=== PATIENT | female | born 1960 | race Caucasian/White ===

== ENCOUNTER 2016-09-24 20:10 | Inpatient (IN) | payer BC ==
[~2016-09-24] VITALS: Ht 175.3 cm; Wt 77.3 kg
[2016-09-24] MEDS ORDERED: METR500T10 PO (20:25)
[2016-09-24] MEDS ORDERED: ZOFR4TAB3 PO (20:25)
[2016-09-24] MEDS ORDERED: MORPHINE 4 MG/ML 1ML SYRINGE IV ONE ×2 (21:00→23:45)
[2016-09-24] MEDS ORDERED: ONDANSETRON 4MG/2ML VIAL (J2405) IV ONE ×2 (21:00→23:45)
[2016-09-24] MEDS: NS 1,000 ML IV SCH ×2 (21:00→23:45)
[2016-09-24 21:14] LABS: BASO % 0.3 % (0.0-1.0); EOS # 0.2 K/mm3 (0.0-0.50); EOS % 1.9 % (0.0-3.0); LARGE UNSTAINED CELL # 0.1 K/mm3 (0.0-0.4); LARGE UNSTAINED CELL % 0.9 % (0.0-4.0); LYMPH # 1.9 K/mm3 (1.5-4.5); LYMPH % 14.6 % (24.0-44.0); MEAN CORPUSCULAR HEMOGLOBIN 29.7 pg (27.0-33.0); MEAN CORPUSCULAR HGB CONC 35.4 g/dl (32.0-36.5); MEAN CORPUSCULAR VOLUME 83.9 fl (80.0-96.0); MONO # 0.7 K/mm3 (0.0-0.8); MONO % 5.8 % (0.0-5.0); NEUTROPHILS # 9.2 K/mm3 (1.8-7.7); NEUTROPHILS % 76.5 % (36.0-66.0); PLATELET COUNT, AUTOMATED 275 k/mm3 (150-450); RED CELL DISTRIBUTION WIDTH 12.6 % (11.5-14.5)
[2016-09-24 21:40] LABS: ALBUMIN 3.9 GM/DL (3.2-5.2); ALBUMIN/GLOBULIN RATIO 1.18 (1.00-1.93); ALKALINE PHOSPHATASE 104 U/L (45-117); ALT/SGPT 79 U/L (12-78); ANION GAP 8 MEQ/L (8-16); AST/SGOT 45 U/L (15-37); BILIRUBIN,DIRECT < 0.1 MG/DL (0.0-0.2); BILIRUBIN,TOTAL 0.5 MG/DL (0.2-1.0); BLOOD UREA NITROGEN 14 MG/DL (7-18); CALCIUM LEVEL 8.6 MG/DL (8.5-10.1); CARBON DIOXIDE LEVEL 26 MEQ/L (21-32); CHLORIDE LEVEL 107 MEQ/L (98-107); CREATININE FOR GFR 0.92 MG/DL (0.55-1.02); GLOMERULAR FILTRATION RATE > 60.0 (>51); GLUCOSE, FASTING 96 MG/DL (70-105); POTASSIUM SERUM 3.3 MEQ/L (3.5-5.1); SODIUM LEVEL 141 MEQ/L (136-145); TOTAL PROTEIN 7.2 GM/DL (6.4-8.2)
[2016-09-24] MEDS ORDERED: POTASSIUM CHLORIDE 10 MEQ SR TABLET PO ONE (22:30)
[2016-09-24] MEDS ORDERED: GASTROGRAFIN SOLUTION 30ML (Q9963) As Ordered ONE (22:42)
[2016-09-25] VITALS (10 sets, daily range): BP systolic 92–113; BP diastolic 52–67
[2016-09-25] MEDS ORDERED: ISOVUE-370 76% 100ML VIAL (Q9967) As Ordered ONE (00:03)
[2016-09-25] MEDS ORDERED: MORPHINE 4 MG/ML 1ML SYRINGE As Ordered ONE ×2 (00:21→06:01)
--- NOTE | 2016-09-25 00:30 | REPUSA ---
CT of the abdomen and pelvis with contrast Clinical statement: Pain. Technique: Multiple axial CT images were obtained from the base of the lungs through the floor of the pelvis utilizing 5 mm axial slices after administration of nonionic intravenous contrast. Coronal an d sagittal reconstructions were also obtained. No comparison is available. Findings: Chest: The visualized lung bases are clear. Abdomen: The liver, spleen, pancreas, kidneys, gallbladder, and adrenal glands are unremarkable. The aorta is within normal limits. There is no evidence of abdominal lymphadenopathy or ascites. Pelvis: There is diffuse bowel wall thickening involving the descending and sigmoid colon, to the lev el of the rectum. No focal evidence of bowel obstruction is seen. The urinary bladder is within vinny l limits. The patient is status post hysterectomy. The other pelvic structures appear grossly intact. There is no evidence of pelvic lymphadenopathy or ascites. Bones: There are no suspicious osseous abnormalities seen. Impression: Diffuse bowel wall thickening involving the descending and sigmoid colon, to the level of the rectum. Findings suggest an infectious or inflammatory colitis. Clinical correlation is recomme nded.
[2016-09-25] MEDS ORDERED: KCL 10MEQ IN STERILE WATER 100ML As Ordered ONE (05:15)
[2016-09-25] MEDS ORDERED: metroNIDAZOLE 500 MG in APPROPRIATE DILUENT 1 EA IV SCH (05:15)
[2016-09-25] MEDS ORDERED: MORPHINE 4 MG/ML 1ML SYRINGE IV PRN (05:15)
[2016-09-25] MEDS: NS 1,000 ML IV SCH ×5 (05:19→20:12)
[2016-09-25] MEDS: KCL 10MEQ IN STERILE WATER 100ML IV SCH ×2 (05:19→08:15)
--- NOTE | 2016-09-25 05:56 | ECGEPIP ---
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
[2016-09-25] MEDS ORDERED: SODIUM CHLORIDE 0.9% 1000 ML IV ONE (06:15)
[2016-09-25] MEDS: ONDANSETRON 4MG/2ML VIAL (J2405) IV PRN ×2 (06:16→14:01)
[2016-09-25] MEDS: LEVOTHYROXINE 0.088 MG TAB (88 MCG) PO SCH (06:18)
[2016-09-25 06:56] LABS: MEAN CORPUSCULAR HEMOGLOBIN 30.3 pg (27.0-33.0); MEAN CORPUSCULAR HGB CONC 35.4 g/dl (32.0-36.5); MEAN CORPUSCULAR VOLUME 85.5 fl (80.0-96.0); RED CELL DISTRIBUTION WIDTH 12.7 % (11.5-14.5); WHITE BLOOD COUNT 12.1 K/mm3 (4.0-10.0)
[2016-09-25] MEDS ORDERED: POTASSIUM CHLORIDE 10 MEQ SR TABLET PO ONE (07:00)
[2016-09-25 07:15] LABS: ANION GAP 7 MEQ/L (8-16); BLOOD UREA NITROGEN 9 MG/DL (7-18); CALCIUM LEVEL 7.5 MG/DL (8.5-10.1); CARBON DIOXIDE LEVEL 25 MEQ/L (21-32); CHLORIDE LEVEL 110 MEQ/L (98-107); CREATININE FOR GFR 0.88 MG/DL (0.55-1.02); GLOMERULAR FILTRATION RATE > 60.0 (>51); GLUCOSE, FASTING 98 MG/DL (70-105); SODIUM LEVEL 142 MEQ/L (136-145)
[2016-09-25] MEDS: CitaloPRAM (CeleXA) 20 MG TAB PO SCH (08:14)
[2016-09-25] MEDS: metroNIDAZOLE 500 MG in APPROPRIATE DILUENT 1 EA IV SCH ×3 (08:16→20:11)
[2016-09-25] MEDS: KCL 10MEQ IN 100ML SWI (KRUN) 10 MEQ in APPROPRIATE DILUENT 1 EA IV SCH ×4 (08:16→09:57)
[2016-09-25 08:52] LABS: INR 1.15
[2016-09-25] MEDS: LACTOBACILLUS ACIDOPHILUS CAP (BACID) PO SCH ×2 (09:57→20:11)
[2016-09-25] MEDS: VANCOMYCIN ORAL SOL 250MG/5ML ORAL SYRINGE PO SCH ×4 (09:58→20:11)
[2016-09-25 11:43] LABS: ALBUMIN 3.3 GM/DL (3.2-5.2); ALBUMIN/GLOBULIN RATIO 1.03 (1.00-1.93); ALKALINE PHOSPHATASE 89 U/L (45-117); ALT/SGPT 64 U/L (12-78); AST/SGOT 34 U/L (15-37); BILIRUBIN,TOTAL 0.6 MG/DL (0.2-1.0); TOTAL PROTEIN 6.5 GM/DL (6.4-8.2)
[2016-09-25] MEDS: MORPHINE 4 MG/ML 1ML SYRINGE IV PRN ×2 (14:01→18:22)
[2016-09-25] MEDS: ACETAMINOPHEN TAB 650MG DOSE (2X325MG) PO PRN (23:56)
[2016-09-26] MEDS: metroNIDAZOLE 500 MG in APPROPRIATE DILUENT 1 EA IV SCH ×4 (03:05→20:55)
[2016-09-26 04:00] VITALS: BP 93/50
[2016-09-26] MEDS: LEVOTHYROXINE 0.088 MG TAB (88 MCG) PO SCH (05:49)
[2016-09-26] MEDS: ACETAMINOPHEN TAB 650MG DOSE (2X325MG) PO PRN ×2 (06:09→13:51)
[2016-09-26 06:17] LABS: MEAN CORPUSCULAR HEMOGLOBIN 29.2 pg (27.0-33.0); MEAN CORPUSCULAR VOLUME 85.8 fl (80.0-96.0); RED CELL DISTRIBUTION WIDTH 12.5 % (11.5-14.5); WHITE BLOOD COUNT 7.8 K/mm3 (4.0-10.0)
[2016-09-26 06:21] LABS: ANION GAP 8 MEQ/L (8-16); BLOOD UREA NITROGEN 6 MG/DL (7-18); CALCIUM LEVEL 7.4 MG/DL (8.5-10.1); CARBON DIOXIDE LEVEL 23 MEQ/L (21-32); CHLORIDE LEVEL 110 MEQ/L (98-107); CREATININE FOR GFR 0.75 MG/DL (0.55-1.02); GLOMERULAR FILTRATION RATE > 60.0 (>51); GLUCOSE, FASTING 84 MG/DL (70-105); POTASSIUM SERUM 3.8 MEQ/L (3.5-5.1); SODIUM LEVEL 141 MEQ/L (136-145)
[2016-09-26] MEDS: NS 1,000 ML IV SCH ×2 (06:46→17:19)
[2016-09-26 07:30] VITALS: BP 93/52
[2016-09-26] MEDS: CitaloPRAM (CeleXA) 20 MG TAB PO SCH (08:37)
[2016-09-26] MEDS: VANCOMYCIN ORAL SOL 250MG/5ML ORAL SYRINGE PO SCH ×4 (08:37→20:58)
[2016-09-26] MEDS: LACTOBACILLUS ACIDOPHILUS CAP (BACID) PO SCH ×2 (08:37→20:55)
[2016-09-26] MEDS: ONDANSETRON 4MG/2ML VIAL (J2405) IV PRN ×2 (10:42→17:19)
[2016-09-26 12:15] VITALS: BP 104/59
--- NOTE | 2016-09-26 12:25 | IPN ---
DATE: 09/26/2016 SUBJECTIVE: This is a 56-year-old female who is admitted for sepsis secondary to Clostridium (C) difficile colitis. Overnight, reported one loose bowel movement, however, small amount. Her abdominal discomfort, nausea and vomiting have been slowly improving. Denies any chest pain, shortness of breath, fevers, night sweats, or palpitations. Reports chills which is also better compared to yesterday. OBJECTIVE: VITAL SIGNS: Blood pressure 93/52, heart rate 58, temperature 99, respiratory rate 20, pulse oximetry 97% on room air. Intake and output last 24 hours, 500 and 1200. One bowel movement. GENERAL: Patient is laying in bed, comfortable, in no acute distress, less toxic-appearing today compared to yesterday. She is awake, alert and oriented times three, pleasant, cooperative, tired-appearing. HEENT: Normocephalic, atraumatic. Oral mucosa is dry. NECK: Supple. Trachea midline. No jugular venous distention (JVD). CHEST: Symmetric chest rise. No accessory muscle use. Breath sounds were clear to auscultation bilaterally. HEART: Regular rate and rhythm, S1, S2 present. ABDOMEN: Soft, mildly tender to palpitation but nondistended. Bowel sounds present. No guarding. No rebound. EXTREMITIES: No pedal edema. Pedal pulses present bilaterally. LABORATORY DATA: WBC 7.8, hemoglobin 10.8, hematocrit 31.8, platelets 203. Sodium 141, potassium3.8, chloride 110, carbon dioxide 23, BUN 6, creatinine 0.75, glucose 84, calcium 7.4. No new imaging. IMPRESSION AND PLAN: Ms. Bartlett is a 56-year-old female with history of hyperlipidemia, recently diagnosed with strep throat and was on antibiotics, who presented with diarrhea, nausea and vomiting, found to have Clostridium (C) difficile colitis. 1. Sepsis. Secondary to C. difficile colitis. Her symptoms are improving significantly. Continue vancomycin by mouth and Flagyl IV. 2. Hypotension. She maintains her mean arterial pressure (MAP) greater than 65. We will continue IV fluid hydration 100 mL per hour. 3. Hypothyroidism. Continue levothyroxine. 4. History of depression. Continue Celexa. 5. Anemia. Her hemoglobin and hematocrit have been unchanged since yesterday. We will continue to monitor for now. No need for emergent transfusion at this time. 6. Deep vein thrombosis (DVT) prophylaxis. Sequential compression device (SCD) and thromboembolic-deterrent stockings (TEDS). No pharmacological intervention secondary to reported bloody bowel movement on admission. My preceptor for this patient encounter was Dr. Sheryl Major. The preceptor was physically present in the building during the encounter and was fully available as needed. All aspects of the patient interview, examination, medical decision making process, and medical care plan development were reviewed and approved by the preceptor. The preceptor is aware and concurs with the plan as stated in the body of this note and will attest to such by his/her co-signature. TENISHA
[2016-09-26] MEDS ORDERED: SLF 3 ML SYR IV PRN (13:45)
[2016-09-26] MEDS: METOCLOPRAMIDE INJ 10MG/2ML VIAL (J2765) IV PRN (13:51)
[2016-09-26] MEDS: SLF 3 ML SYR IV SCH ×2 (13:51→22:00)
--- NOTE | 2016-09-26 14:09 | HPE ---
DATE OF ADMISSION: 09/25/2016 PRIMARY CARE PROVIDER: Dr. Garcia. ADMITTING PROVIDER: Dr. Rony Huerta. CHIEF COMPLAINT: Abdominal pain with bloody diarrhea. HISTORY OF PRESENT ILLNESS: Ms. Cifuentes is a 56-year-old female who presented to the emergency department for evaluation of what is now bloody diarrhea. She states that last , she began to have nausea, vomiting and diarrhea, therefore she presented to the Urgent Care in [facility]. She was presumed to have strep throat therefore she was given amoxicillin, however, even though she did take the amoxicillin as prescribed, she continue to get worse, therefore she did present to the [facility] on 09/24/2016, at that time it was presumed that perhaps she did have Clostridium difficile colitis, therefore GI panel was ordered and she was started on metronidazole, she did take one dose of oral metronidazole although she may have vomited this up, but then she began to have blood in her diarrhea as well, therefore she decided to present to the emergency department. She does state that she has been unable to eat for the past few days, she is also now beginning to have some difficulty with liquids as well as she will immediately vomit them backup after ingesting. She states that she has never had any previous episode such as this, and she is not prone to any sort of GI illnesses. She has not had any sick contacts per say, she does live with her elderly mother who had the flu a few weeks ago, but has since convalesced and never had GI symptoms such as this. ALLERGIES: TETRACYCLINE gives her rash, CODEINE SULFATE causes nausea and vomiting. DEMEROL causes nausea, vomiting and LIPITOR causes muscle weakness. HOME MEDICATIONS: - Levoxyl 88 mcg one tablet by mouth daily - Celexa 20 mg 1.5 tablets (for a total 30 mg) daily by mouth - ibuprofen 200 mg every 6 hours as needed - previously she had been taking amoxicillin 500 mg one tablet twice daily since last . - She was just prescribed metronidazole orally by the Urgent Care, she did take one pill, she is unsure of the dose, but thinks that she may have vomited this back up. PAST MEDICAL HISTORY: 1. Hypothyroidism, secondary to thyroid removal because of multiple thyroid nodules. She believes that she has approximately 5% of her thyroid remaining 2. Depression. 3. Hyperlipidemia. SOCIAL HISTORY: She is a never smoker. Does not imbibe alcohol. Has never used recreational drugs. 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 PAST SURGICAL HISTORY: She had an appendectomy secondary to an appendicolith and she also had a hysterectomy in the past. FAMILY HISTORY: She is adopted therefore she does not know her family history. She does have two children, both of whom are healthy. REVIEW OF SYSTEMS: Constitutional: She denies having any fevers, however she does admit to chills and shaking chills, she denies any night sweats, she does admit to weakness and fatigue as well as lethargy. She does not think she has had any significant weight loss. HEENT: She denies any changes in vision or hearing, she does not have any difficulty chewing or swallowing her food, however, because of her GI upset, she has been unable to tolerate anything by mouth for the past few days. Skin: She denies any new rashes, lumps, bumps or bruises. Respiratory: Denies cough, shortness of breath, wheezing or chest pain. Cardiovascular: Denies any chest discomfort, palpitations, orthopnea, paroxysmal nocturnal dyspnea or swelling in the feet or the ankles. Gastrointestinal: She has been suffering from nausea, vomiting and diarrhea since last , since this morning she has begun to have diarrhea with blood mixed in it, she does have abdominal pain which is described as diffuse aches and cramps. She also does feel somewhat bloated. Genitourinary: Denies any dysuria, frequency, incontinence or hematuria. Hematologic: Denies any easy bleeding or bruising and has not noticed any petechia purpura. Endocrine: Denies polydipsia, polyphagia or polyuria. Neurological: She denies any weakness or paresthesias, no changes in speech or facial droop. Psych: She does admit to chronic depression, otherwise no complaints at this time. PHYSICAL EXAMINATION: Vitals: Temperature is 98.2 degrees Fahrenheit. Pulses 58 and regular, respiratory rate 16, blood pressure 102/58 and pulse oximetry is 96% on room air. General: She is awake, alert and oriented times three. She is in moderate distress at this time. HEENT: Head is normocephalic, atraumatic. Pupils equally reactive to light. Sclera are nonicteric. Extraocular movements are intact. Hearing is grossly intact to conversation. Buccal mucosa is pink and moist. No lesions in the oropharynx. Dentition is good. No lymphadenopathy is appreciated. Pulmonary: Clear to auscultation bilaterally with no wheezes, rales or rhonchi. Cardiac: Regular rate and rhythm with no murmurs, rubs or gallops noted. Abdomen is diffusely tender, she is somewhat more tender in the right lower quadrant, hyperactive bowel sounds, multiple scars noted from her previous surgical history. Telemetry: No significant arrhythmia. She is in sinus rhythm at this time. She is even borderline bradycardic. Extremities: 2+ pulses in the radial bilaterally. No evidence of clubbing, cyanosis or edema. Skin: Normal turgor and temperature with no rash or breakdown. Neurological: Cranial nerves II-XII are grossly intact. Extraocular movements are intact. She is able to move all four extremities, muscle tone normal, she has normal speech with no difficulty word finding or word substitution. Psych exam: Mood and affect are appropriate. She is alert and oriented times three. LABORATORY DATA: WBC 12.0, hemoglobin 12.3, hematocrit 34.7, platelets 275. Sodium 141, potassium 3.3, chloride 107, carbon dioxide 26, BUN 14, creatinine 0.92, glucose 96, calcium 8.6, total bilirubin 0.5, direct bilirubin less than 0.1. AST 45, ALT 79, alkaline phosphatase 104, total creatinine kinase 154, CK- MB 1.2, CK-MB relative index 0.77. Troponin I less than 0.02, total protein 7.2, albumin 3.9, albumin/globulin ratio 1.18, lipase 177. Urinalysis: Color is yellow. Appearance is clear. PH is 9.0. Specific gravity 1.009. Protein, glucose, blood, nitrite, bilirubin and bacteria are all negative. She does have trace ketones and trace leukocyte esterase. Urine urobilinogen is 0.2, WBC 2, RBC 0. Hyaline casts 0. Squamous epithelial cells 0. ASSESSMENT/PLAN: 1. Clostridium difficile colitis as confirmed by GI panel ordered in [facility]. Will start her on vancomycin 250 mg by mouth four times daily, as well as metronidazole 500 mg IV every 6 hours as she may not be able to tolerate the oral vancomycin to begin with, however, we will attempt to give it to her. Given her soft pressures and her history of bloody diarrhea, we will also start her on normal saline at 200 cc/hour, at this point her hemoglobin and hematocrit has remained okay, and she is not tachycardiac, therefore, she does not appear to be in need of an immediate transfusion. We will provide her with Zofran 4 mg IV every 4 hours as needed for nausea and vomiting as well as morphine 3 mg IV every 3 hours as needed for pain. We will keep her n.p.o. at this time. We will check every 6 hours hemoglobin and hematocrit, as well as do daily CBC to ensure that leukocytosis is trending down, and we will continue to monitor daily BMPs for electrolyte abnormalities. 2. Hypokalemia. As the patient is unable to tolerate oral right now, we will give her two potassium runs and recheck her potassium in the morning, we will also get a magnesium level. 3. Hypothyroidism status post thyroidectomy. Continue with home dose of Levoxyl 88 mcg by mouth daily. 4. History of depression. Continue with Celexa 30 mg by mouth daily. 5. Deep venous thrombosis (DVT) prophylaxis. As the patient is currently bleeding, we will do DVT prophylaxis with thromboembolic deterrent stockings (TEDS) and sequentials, and we will allow her activity as tolerated and encourage ambulation if she is feeling up to it. I have both independently examined this patient as well as reviewed the dictated note. I have discussed in detail with the resident the findings and plan of treatment as documented in the residents note. I will continue to follow the patient and offer further guidance to the patients care as necessary during this hospital stay. TENISHA
--- NOTE | 2016-09-26 14:32 | IPN ---
DATE: 09/25/2016 SUBJECTIVE: This is a 56-year-old female who is seen and examined in the emergency room (ED). She was admitted overnight for hypotension and Clostridium (C) difficile colitis. Approximately 6-7 days ago, she developed intractable nausea, vomiting, and diarrhea. She was going approximately two episodes each hour, had kay-like content mixed in her stool along with mucous. Because of her symptoms, she presented to urgent care. At that time, she was diagnosed with strep throat and was sent home with amoxicillin. However, despite treatment, her symptoms worsened and she actually was reevaluated by her primary care provider (PCP) yesterday. At that time, stool was checked and was positive for C. difficile. She was then started on Flagyl by mouth and Bacid. Amoxicillin was discontinued. Since admission, she continues to report significant bowel movement mixed with her stool. Denies any recent travel, swimming in [place], or drinking [place] water. She does her own cooking but uses bottled water to cook. She has not eaten out in restaurants. She also reported abdominal pain which is diffusely located and described as sharp. Her abdomen is less painful today after morphine. This morning, she feels significantly improved in terms of her diarrhea as well as abdominal pain. No fevers, chills, night sweats, or nausea. She had emesis overnight which has since resolved. She was initially hypotensive with systolic as low as 80 and mean arterial pressure (MAP) lowest was 57. With multiple boluses and IV fluid hydration, this has improved. OBJECTIVE: VITAL SIGNS: Blood pressure 100/56, heart rate 63, temperature 98.9, respiratory rate 18, pulse oximetry 97% on room air. Intake and output since admission is not accurately documented. GENERAL: Patient is laying in bed at approximately 30 degree angle, comfortable, in no acute distress, awake, alert and oriented times three. HEENT: Normocephalic, atraumatic. Dry oral mucosa. Eyes: Extraocular movement intact. Pupils are equal and reactive to light. NECK: Supple. Trachea midline. No jugular venous distention (JVD). CHEST: Symmetric chest rise. No accessory muscle use. Breath sounds were diminished but clear bilaterally. HEART: Regular rate and rhythm, normal S1, S2. Did not appreciate murmurs, rubs, or gallops. ABDOMEN: Soft, diffusely tender to palpation but not distended. No guarding. No rebound. No peritoneal signs. EXTREMITIES: No pedal edema. Pedal pulses present bilaterally. NEUROLOGIC: No focal deficits appreciated. Cranial nerves II-XII grossly intact. Sensory intact. PSYCHIATRIC: Normal affect. LABORATORY DATA: WBC 12.1, no significant change compared to yesterday, hemoglobin 11.2, hematocrit 31.7, platelets 227. Sodium 142, potassium 4, chloride 110, carbon dioxide 25, BUN 9, creatinine 0.88 , glucose 98, calcium 7.5, magnesium 2, total bilirubin normal, liver profile normal. Lipase on admission was 177. Coagulation factors: PT 1.8, INR 1.15. Urinalysis showed trace ketones, trace leukocyte esterase. CT abdomen and pelvis performed on 09/24/2016 showed no suspicious osseous abnormality seen, diffuse bowel wall thickening involving the descending and sigmoid colon to the level of the rectum. Findings suggestive for infectious or inflammatory colitis. IMPRESSION AND PLAN: Ms. Bartlett is a 56-year-old female with a past medical history of hypertension, hyperlipidemia, recently diagnosed and treated for a strep throat, who presented for intractable nausea, vomiting and diarrhea, found to have Clostridium (C) difficile colitis. 1. Sepsis. Secondary to underlying C. difficile colitis. The patient will be continued with aggressive fluid hydration. She has been responding well and blood pressure is improving as expected. At this time, we will hold off on placement of central line due to her improved condition. Lactic acid was checked and was normal. Continue vancomycin 250 mg by mouth four times a day and Flagyl and 500 every six hours IV. We have started her on Bacid twice a day. Continue with normal saline at 100 mL per hour. Continue nothing by mouth status for now. This is her first episode of C. difficile colitis. 2. Hypotension. Likely secondary to infection as mentioned above. We will continue with aggressive fluid hydration. 3. Anemia. Patient has been reporting approximately close to one week of kay-colored stool. Continue to trend hemoglobin and hematocrit. No emergent criteria for transfusion at this time. Have stool checked for stool occult. Her most recent colonoscopy was last year in 2016 in [place]. At that time, she was told that her colonoscopy was negative. Coagulation studies were checked and were normal. 4. Leukocytosis. Likely secondary to underlying infection. We will repeat laboratories in the morning. She is on antibiotics for C. difficile colitis. 5. Hypokalemia. Potassium has been repleted. Magnesium level was appropriate. 6. History of hyperlipidemia. She does not appear to be on medication at this time. We will defer to primary care provider (PCP) whenever her condition is improved for discharge. 7. History of postsurgical hypothyroidism. Her medication outside indicates that she was taking levothyroxine 88 mcg daily. However, we currently do not have this listed as her reconciliation. We will check with pharmacy. 8. History of depression and anxiety. It appears that she was taking Celexa 10 mg by mouth daily which is not listed currently. 9. Deep vein thrombosis (DVT) prophylaxis. Sequential compression device (SCD) and thromboembolic-deterrent stockings (TEDS). No pharmacological intervention secondary to blood loss anemia. My preceptor for this patient encounter was Dr. Sheryl Major. The preceptor was physically present in the building during the encounter and was fully available as needed. All aspects of the patient interview, examination, medical decision making process, and medical care plan development were reviewed and approved by the preceptor. The preceptor is aware and concurs with the plan as stated in the body of this note and will attest to such by his/her co-signature. TENISHA
[2016-09-26 16:00] VITALS: BP 104/51
[2016-09-26 19:58] VITALS: BP 121/57
[2016-09-26 23:59] VITALS: BP 100/60
[2016-09-27] MEDS: ACETAMINOPHEN TAB 650MG DOSE (2X325MG) PO PRN (00:23)
[2016-09-27] MEDS: metroNIDAZOLE 500 MG in APPROPRIATE DILUENT 1 EA IV SCH ×4 (02:42→20:08)
[2016-09-27] MEDS: NS 1,000 ML IV SCH ×3 (02:46→20:07)
[2016-09-27 04:00] VITALS: BP 119/66
[2016-09-27] MEDS: LEVOTHYROXINE 0.088 MG TAB (88 MCG) PO SCH (05:41)
[2016-09-27] MEDS: SLF 3 ML SYR IV SCH ×3 (05:45→20:11)
[2016-09-27 06:16] LABS: MEAN CORPUSCULAR HGB CONC 34.9 g/dl (32.0-36.5); MEAN CORPUSCULAR VOLUME 86.1 fl (80.0-96.0); RED CELL DISTRIBUTION WIDTH 12.6 % (11.5-14.5); WHITE BLOOD COUNT 10.4 K/mm3 (4.0-10.0)
[2016-09-27 06:29] LABS: ANION GAP 13 MEQ/L (8-16); BLOOD UREA NITROGEN 7 MG/DL (7-18); CALCIUM LEVEL 7.7 MG/DL (8.5-10.1); CARBON DIOXIDE LEVEL 17 MEQ/L (21-32); CHLORIDE LEVEL 108 MEQ/L (98-107); CREATININE FOR GFR 0.74 MG/DL (0.55-1.02); GLOMERULAR FILTRATION RATE > 60.0 (>51); GLUCOSE, FASTING 69 MG/DL (70-105); POTASSIUM SERUM 3.7 MEQ/L (3.5-5.1); SODIUM LEVEL 138 MEQ/L (136-145)
[2016-09-27 07:15] VITALS: BP 95/52
[2016-09-27] MEDS: CitaloPRAM (CeleXA) 20 MG TAB PO SCH (08:40)
[2016-09-27] MEDS: LACTOBACILLUS ACIDOPHILUS CAP (BACID) PO SCH ×2 (08:40→20:10)
[2016-09-27] MEDS: VANCOMYCIN ORAL SOL 250MG/5ML ORAL SYRINGE PO SCH ×4 (08:40→20:09)
[2016-09-27] MEDS ORDERED: INFLUENZA QUADRIVALENT PF VACCINE 0.5ML SYRINGE/VIAL (90686) IM ONE (09:00)
[2016-09-27] MEDS ORDERED: ONDANSETRON 4MG/2ML VIAL (J2405) IV ONE (10:45)
[2016-09-27 12:00] VITALS: BP 100/55
--- NOTE | 2016-09-27 13:43 | IPN ---
DATE: 09/27/2016 This is a 56-year-old female who was seen and examined at bedside. Overnight no reported acute events. Early this morning, her diet was advanced to clear liquid. However, after starting to drink lamberto argelia and water, she reported immediate nausea and abdominal pain. She was also hypotensive again this morning with systolic in the 90s though her map was able to maintain above 65. She was found to be bradycardic on telemetry. Denies chest pain, shortness of breath, fevers, chills. She felt better compared to yesterday until she started taking oral. OBJECTIVE: Vital signs: Blood pressure 95/52, heart rate 68, temperature 97.1, respiration rate 18, pulse ox 96% on room air. Intake and output for the last 24 hours 1850 and 3250. Output is negative 1400. Weight is 75.6 kg. General: Patient is lying in bed, comfortable, tired appearing. However, no acute respiratory or psychiatric distress. HEENT: Normocephalic, atraumatic. Dry oral mucosa. Neck: Supple. Trachea midline. No jugular venous distention (JVD). Chest: Symmetric chest rise. No accessory muscle use. Breath sounds are clear to auscultation bilaterally without rales, wheezing or rhonchi. Heart: Regular rate and rhythm with normal S1, S2. Did not appreciate murmurs, rubs or gallops. Abdomen: Soft, diffusely tender to palpation, nondistended, no guarding, no rebound, no peritoneal signs. Extremities: No pedal edema, pedal pulses are present bilaterally. Neurologic: No focal deficits appreciated. Cranial nerves II through XII grossly intact. Psychiatric: Appears tired but normal affect. LABORATORY DATA: WBC 10.4 increased from yesterday 7.8, hemoglobin 11.6, hematocrit 33.3, platelets 232. Sodium 138, potassium 3.7, chloride 108, carbon dioxide 17. BUN 7, creatinine 0.74. Glucose 69, calcium 7.7. IMPRESSION AND PLAN: Ms. Cifuentes is a 56-year-old female with history of hyperlipidemia, hypothyroidism who is currently admitted for sepsis secondary to Clostridium difficile colitis. 1. Sepsis. Continue fluid hydration at 125 mL/hr. She still remains somewhat hypotensive this morning and has not been able to tolerate oral intake. Telemetry also showed bradycardia although she was asymptomatic. For now, the patient will continue to be monitored in the progressive care unit (PCU). Continue supportive management with Zofran. She is currently on vancomycin by mouth and Flagyl IV. Continue Bacid. She is on day 3 of antibiotics. Once her blood pressure improves, hopefully we can stop her IV Flagyl. 2. Hypotension. Secondary to underlying infection. Will continue aggressive fluid resuscitation at this time. The patient will be continued to be monitored closely in the progressive care unit. 3. Anemia. Her hemoglobin is slowly improving. No longer reported kay colored stool. Her last bowel movement was on the day of admission. Continue to monitor for now. No need for emergent transfusion at this time. Her most recent colonoscopy was 2015 in [facility], at that time was reportedly negative. 4. Leukocytosis. WBC today shows mild increase but still within normal range. She remains afebrile throughout this admission. Continue antibiotics as mentioned above. 5. Hypokalemia. Potassium is within reasonable range. 6. History of postsurgical hypothyroidism. Continue levothyroxine 88 mcg by mouth daily. 7. History of anxiety/depression. Continue Celexa. 8. Deep venous thrombosis (DVT) prophylaxis, sequential compression devices (SCD), thromboembolic deterrent stockings (TEDS). Will start her on heparin for pharmacological intervention as we do not have records documenting blood loss. Will continue to monitor her levels closely. DISPOSITION: Because of patient's bradycardia and hypotension, she will remain in the progressive care unit for now. My preceptor for this patient encounter was Dr. Major. The preceptor was physically present in the building during the encounter and was fully available. As needed, all aspects of the patient interview, examination, medical decision making process, and medical care plan development were reviewed and approved by the preceptor. The preceptor is aware and concurs with the plan as stated in the body of this note and will attest to such by his/her cosignature. TENISHA
[2016-09-27] MEDS: HEPARIN SOD (PORCINE) 5000 UNITS/ML VIAL SQ SCH ×2 (14:32→20:10)
[2016-09-27 16:00] VITALS: BP 105/62
[2016-09-27 20:00] VITALS: BP 99/55
[2016-09-27] MEDS ORDERED: MAALOX 30 ML SUSP *UDC PO PRN (23:15)
[2016-09-27] MEDS: METOCLOPRAMIDE INJ 10MG/2ML VIAL (J2765) IV PRN (23:24)
[2016-09-27 23:59] VITALS: BP_SYST 100; BP_SYST 110; BP_DIAS 55; BP_DIAS 58
[2016-09-28] MEDS: metroNIDAZOLE 500 MG in APPROPRIATE DILUENT 1 EA IV SCH ×3 (02:26→13:01)
[2016-09-28] MEDS: NS 1,000 ML IV SCH ×3 (02:26→17:09)
[2016-09-28 04:45] VITALS: BP 90/52
[2016-09-28] MEDS: LEVOTHYROXINE 0.088 MG TAB (88 MCG) PO SCH (05:00)
[2016-09-28] MEDS: SLF 3 ML SYR IV SCH ×3 (05:00→21:21)
[2016-09-28 05:42] LABS: MEAN CORPUSCULAR HEMOGLOBIN 28.4 pg (27.0-33.0); MEAN CORPUSCULAR HGB CONC 33.2 g/dl (32.0-36.5); MEAN CORPUSCULAR VOLUME 85.6 fl (80.0-96.0); RED CELL DISTRIBUTION WIDTH 12.9 % (11.5-14.5)
[2016-09-28 05:45] LABS: ANION GAP 12 MEQ/L (8-16); BLOOD UREA NITROGEN 7 MG/DL (7-18); CALCIUM LEVEL 7.2 MG/DL (8.5-10.1); CARBON DIOXIDE LEVEL 19 MEQ/L (21-32); CHLORIDE LEVEL 109 MEQ/L (98-107); GLOMERULAR FILTRATION RATE > 60.0 (>51); GLUCOSE, FASTING 74 MG/DL (70-105); POTASSIUM SERUM 3.7 MEQ/L (3.5-5.1); SODIUM LEVEL 140 MEQ/L (136-145)
[2016-09-28 08:00] VITALS: BP 102/60
[2016-09-28] MEDS: CitaloPRAM (CeleXA) 20 MG TAB PO SCH (08:23)
[2016-09-28] MEDS: LACTOBACILLUS ACIDOPHILUS CAP (BACID) PO SCH ×2 (08:23→21:20)
[2016-09-28] MEDS: VANCOMYCIN ORAL SOL 250MG/5ML ORAL SYRINGE PO SCH ×4 (08:23→21:20)
[2016-09-28] MEDS: HEPARIN SOD (PORCINE) 5000 UNITS/ML VIAL SQ SCH ×2 (08:23→21:21)
[2016-09-28 12:00] VITALS: BP 118/60
[2016-09-28] MEDS: ONDANSETRON 4MG/2ML VIAL (J2405) IV PRN (13:53)
[2016-09-28 15:50] VITALS: BP 112/68
[2016-09-28] MEDS: METOCLOPRAMIDE INJ 10MG/2ML VIAL (J2765) IV PRN ×2 (17:09→21:28)
--- NOTE | 2016-09-28 20:38 | IPN ---
DATE: 09/28/2016 SUBJECTIVE: This is a 56-year-old female who was seen and examined at bedside. Overnight no reported acute events. She was advanced to clear liquid diet yesterday. Her oral intake is somewhat improved this morning with her clear liquids compared to yesterday. No nausea, vomiting. Has not had further bowel movements since admission. She did have one episode of flatus. Abdominal pain is significantly improved. OBJECTIVE: Vital signs: Blood pressure 102/60, heart rate 69, temperature 97.3 , respiration rate 18, pulse oximetry 96% on room air. Intake and output for the last 24 hours 3145 and 3175. No bowel movements since 09/25/2016. Weight is 75.9 kg. GENERAL: Patient is lying in bed at approximately 45 degree angle, comfortable. No acute distress. Alert, awake, oriented times three. Pleasant, cooperative, tired-appearing. HEENT: Normocephalic, atraumatic. Dry oral mucosa. NECK: Supple. Trachea midline. No jugular venous distention (JVD). CHEST: Symmetric chest rise. No accessory muscle use. Breath sounds are clear to auscultation bilaterally without rales, wheezing or rhonchi. HEART: Regular rate and rhythm with normal S1, S2. Did not appreciate murmurs, rubs or gallops. ABDOMEN: Soft, mildly tender to palpation but less significant today compared to yesterday. No distention. No guarding. No rebound. No peritoneal signs. EXTREMITIES: No pedal edema, pedal pulses are present bilaterally. NEUROLOGIC: No focal deficits appreciated. Cranial nerves II through XII grossly intact. PSYCHIATRIC: Tired, cooperative. LABORATORY DATA: WBC 8, hemoglobin 10.9, hematocrit 32.7, platelets 227. Sodium 140, potassium 3.7, chloride 109, carbon dioxide 19, BUN 7, creatinine 0.7, glucose 74, calcium 7.2. IMPRESSION AND PLAN: Ms. Cifuentes is a 56-year-old female with history of hyperlipidemia, hypothyroidism, admitted for sepsis secondary to Clostridium (C) difficile colitis. 1. Sepsis, resolved. She is on vancomycin and IV Flagyl. We will continue IV hydration for now at 125 mL per hour. Once her oral intake increases, we hope to decrease her fluid rate. 2. Hypotension, secondary to underlying infection. The patient reports her baseline blood pressure is anywhere in the 120 range. In review of her previous vital signs, she tends to run low early in the morning and the patient reportedly was sleeping before her blood pressure was checked. She remains asymptomatic despite her hypotension. For now, we will continue to monitor. She is on IV fluid at 125 mL per hour. She is also on antibiotics for C difficile colitis. 3. Anemia. No evidence of gross bleeding at this time. In fact, she has not had a bowel movement since admission. Continue to monitor. No need for emergent transfusion. We have again requested for colonoscopy report from [place] that was performed in 2016, which reportedly was negative. 4. Leukocytosis, resolved. This is secondary to her C difficile colitis. Continue antibiotic. She is on day 4 of antibiotics. 5. Hypokalemia, resolved. 6. History of postsurgical hypothyroidism. Continue levothyroxine 88 mcg by mouth daily, which is her home medication. 7. Anxiety/depression. Continue home dose of Celexa. 8. Deep venous thrombosis (DVT) prophylaxis, sequential compression devices (SCD), thromboembolic deterrent stockings (TEDS), and heparin. DISPOSITION: Due to the patient's improved condition with no event on telemetry, the patient will be transferred to medical/surgical today. My preceptor for this patient encounter was Dr. Major. The preceptor was physically present in the building during the encounter and was fully available. As needed, all aspects of the patient interview, examination, medical decision making process, and medical care plan development were reviewed and approved by the preceptor. The preceptor is aware and concurs with the plan as stated in the body of this note and will attest to such by his/her cosignature. TENISHA
[2016-09-28 22:00] VITALS: BP 110/64
[2016-09-29] MEDS: NS 1,000 ML IV SCH ×2 (00:03→07:27)
[2016-09-29] MEDS: LEVOTHYROXINE 0.088 MG TAB (88 MCG) PO SCH (05:43)
[2016-09-29] MEDS: SLF 3 ML SYR IV SCH ×3 (05:57→20:51)
[2016-09-29 06:00] VITALS: BP 110/61
[2016-09-29 06:01] LABS: MEAN CORPUSCULAR HEMOGLOBIN 29.3 pg (27.0-33.0); MEAN CORPUSCULAR HGB CONC 33.9 g/dl (32.0-36.5); MEAN CORPUSCULAR VOLUME 86.4 fl (80.0-96.0); RED CELL DISTRIBUTION WIDTH 13.1 % (11.5-14.5); WHITE BLOOD COUNT 7.4 K/mm3 (4.0-10.0)
[2016-09-29 06:21] LABS: ANION GAP 13 MEQ/L (8-16); BLOOD UREA NITROGEN 5 MG/DL (7-18); CALCIUM LEVEL 7.4 MG/DL (8.5-10.1); CARBON DIOXIDE LEVEL 18 MEQ/L (21-32); CHLORIDE LEVEL 108 MEQ/L (98-107); GLOMERULAR FILTRATION RATE > 60.0 (>51); GLUCOSE, FASTING 70 MG/DL (70-105); POTASSIUM SERUM 3.8 MEQ/L (3.5-5.1); SODIUM LEVEL 139 MEQ/L (136-145)
[2016-09-29] MEDS: CitaloPRAM (CeleXA) 20 MG TAB PO SCH (08:49)
[2016-09-29] MEDS: LACTOBACILLUS ACIDOPHILUS CAP (BACID) PO SCH ×2 (08:49→20:51)
[2016-09-29] MEDS: VANCOMYCIN ORAL SOL 250MG/5ML ORAL SYRINGE PO SCH ×4 (08:49→20:52)
[2016-09-29] MEDS: HEPARIN SOD (PORCINE) 5000 UNITS/ML VIAL SQ SCH ×2 (08:49→20:51)
--- NOTE | 2016-09-29 10:55 | IPNPDOC ---
Subjective Date Seen The patient was seen on 09/29/16. Subjective Chief Complaint/HPI The patient is a 56-year-old female admitted with a reason for visit of Colitis , Lower Gi Bleed. General: Denies: Chills, Night Sweats Constitutional: Denies: Chills, Fever Eyes: Denies: Pain, Vision change ENT: Denies: Head Aches, Ear Pain Skin: Denies: Rash, Lesions Pulmonary: Denies: Dyspnea, Cough Cardiovascular: Denies: Chest Pain, Palpitations Gastrointestinal: Denies: Nausea, Vomiting, Abdominal Pain Genitourinary: Denies: Dysuria, Frequency Hematologic: Denies: Bruising, Bleeding Excessively Objective Physical Examination General Exam: Positive: Alert, Cooperative, No Acute Distress ENT Exam: Positive: Atraumatic, Mucous membr. moist/pink Neck Exam: Negative: JVD Chest Exam: Positive: Clear to auscultation, Normal air movement Heart Exam: Positive: Rate Normal, Normal S1, Normal S2 Abdomen Exam: Positive: Soft, Negative: Tenderness Extremity Exam: Negative: Tenderness, Swelling Psych Exam: Positive: Oriented x 3 Assessment /Plan Plan/VTE VTE Prophylaxis Ordered?: Yes Plan Abdominal pain, diarrhea 2/2 Clostridium difficile infection White blood cell count within normal limits, and afebrile at this time Continue on by mouth vancomycin Patient states that her diarrhea has resolved and notes feeling much better today Patient tolerated clear liquid diet adequately yesterday, we will advance her diet today We will continue to monitor her status Leukocytosis, secondary to C. difficile colitis, resolved. Continue by mouth Vanco History of postsurgical hypothyroidism. Continue levothyroxine 88 mcg Anxiety/depression Continue Celexa. Deep venous thrombosis (DVT) prophylaxis (TEDS) and heparin. DISPOSITION: Anticipate discharge in 24-48 hours pending clinical improvement/ by mouth tolerance VS, I&O, 24H, Fishbone Vital Signs/I&O Vital Signs Date Time Temp Pulse Resp B/P (MAP) Pulse Ox O2 Delivery O2 Flow Rate FiO2 09/29/16 06:00 98.2 63 18 110/61 (77) 96 Room Air I&O- Last 24 Hours up to 6 AM 09/29/16 06:00 Intake Total 3235 ml Output Total 3425 ml Balance -190 ml Laboratory Data 24H LABS Laboratory Tests 2 09/29/16 05:29: Anion Gap 13, Glomerular Filtration Rate > 60.0, Blood Urea Nitrogen 5L, Creatinine 0.60, Sodium Level 139, Potassium Level 3.8, Chloride Level 108H, Carbon Dioxide Level 18L, Calcium Level 7.4L CBC/BMP Laboratory Tests 09/29/16 05:29 Red Blood Count 3.85 L, Mean Corpuscular Volume 86.4, Mean Corpuscular Hemoglobin 29.3, Mean Corpuscular Hemoglobin Concent 33.9, Red Cell Distribution Width 13.1, Calcium Level 7.4 L Microbiology Microbiology 09/24/16 Urine Culture - Final, Complete LANNY BRADY MD Sep 29, 2016 10:55
[2016-09-29 14:00] VITALS: BP 109/56
[2016-09-29 22:00] VITALS: BP 110/68
[2016-09-30] MEDS: LEVOTHYROXINE 0.088 MG TAB (88 MCG) PO SCH (05:50)
[2016-09-30] MEDS: SLF 3 ML SYR IV SCH ×3 (05:50→22:02)
[2016-09-30 06:00] VITALS: BP 90/64
[2016-09-30 07:56] LABS: MEAN CORPUSCULAR HGB CONC 34.7 g/dl (32.0-36.5); MEAN CORPUSCULAR VOLUME 83.6 fl (80.0-96.0); RED CELL DISTRIBUTION WIDTH 13.3 % (11.5-14.5)
[2016-09-30 08:19] LABS: ANION GAP 7 MEQ/L (8-16); BLOOD UREA NITROGEN 4 MG/DL (7-18); CALCIUM LEVEL 8.3 MG/DL (8.5-10.1); CARBON DIOXIDE LEVEL 27 MEQ/L (21-32); CHLORIDE LEVEL 107 MEQ/L (98-107); CREATININE FOR GFR 0.62 MG/DL (0.55-1.02); GLOMERULAR FILTRATION RATE > 60.0 (>51); GLUCOSE, FASTING 100 MG/DL (70-105); POTASSIUM SERUM 3.7 MEQ/L (3.5-5.1); SODIUM LEVEL 141 MEQ/L (136-145)
[2016-09-30] MEDS: LACTOBACILLUS ACIDOPHILUS CAP (BACID) PO SCH ×2 (09:28→20:38)
[2016-09-30] MEDS: VANCOMYCIN ORAL SOL 250MG/5ML ORAL SYRINGE PO SCH ×4 (09:28→20:37)
[2016-09-30] MEDS: CitaloPRAM (CeleXA) 20 MG TAB PO SCH (09:28)
[2016-09-30] MEDS: HEPARIN SOD (PORCINE) 5000 UNITS/ML VIAL SQ SCH ×2 (09:28→20:38)
[2016-09-30 09:34] VITALS: BP 102/64
[2016-09-30] MEDS: ACETAMINOPHEN TAB 650MG DOSE (2X325MG) PO PRN (09:58)
[2016-09-30] MEDS ORDERED: VANC125C2 PO (10:29)
--- NOTE | 2016-09-30 13:53 | IPNPDOC ---
Subjective Date Seen The patient was seen on 09/30/16. Subjective Chief Complaint/HPI The patient is a 56-year-old female admitted with a reason for visit of Colitis , Lower Gi Bleed. General: Denies: Chills, Night Sweats Constitutional: Denies: Chills, Fever Eyes: Denies: Pain, Vision change ENT: Denies: Head Aches, Ear Pain Skin: Denies: Rash, Lesions Pulmonary: Denies: Dyspnea, Cough Cardiovascular: Denies: Chest Pain, Palpitations Gastrointestinal: Denies: Nausea, Vomiting Genitourinary: Denies: Dysuria, Frequency Hematologic: Denies: Bruising, Bleeding Excessively Musculoskeletal: Denies: Neck Pain, Back Pain Objective Physical Examination General Exam: Positive: Alert, Cooperative, No Acute Distress ENT Exam: Positive: Atraumatic, Mucous membr. moist/pink Neck Exam: Negative: JVD Chest Exam: Positive: Clear to auscultation, Normal air movement Heart Exam: Positive: Rate Normal, Normal S1, Normal S2 Abdomen Exam: Positive: Soft, Negative: Tenderness Extremity Exam: Negative: Tenderness, Swelling Psych Exam: Positive: Oriented x 3 Assessment /Plan Plan/VTE VTE Prophylaxis Ordered?: Yes Plan Abdominal pain, diarrhea 2/2 Clostridium difficile infection White blood cell count within normal limits, and afebrile at this time Continue on by mouth vancomycin Patient states that her diarrhea has resolved and notes feeling much better Patient tolerating PO diet better over night, but has yet to have a full meal--- will trial this today We will continue to monitor her status Leukocytosis, secondary to C. difficile colitis, resolved. Continue by mouth Vanco History of postsurgical hypothyroidism. Continue levothyroxine 88 mcg Anxiety/depression Continue Celexa. Deep venous thrombosis (DVT) prophylaxis (TEDS) and heparin. DISPOSITION: Anticipate discharge in 24-48 hours pending clinical improvement/ by mouth tolerance VS, I&O, 24H, Iliabone Vital Signs/I&O Vital Signs Date Time Temp Pulse Resp B/P (MAP) Pulse Ox O2 Delivery O2 Flow Rate FiO2 09/30/16 09:34 102/64 (77) 09/30/16 06:00 97.2 57 18 95 Room Air I&O- Last 24 Hours up to 6 AM 09/30/16 06:00 Intake Total 840 ml Output Total 1500 ml Balance -660 ml Laboratory Data 24H LABS Laboratory Tests 2 09/30/16 07:28: Anion Gap 7L, Glomerular Filtration Rate > 60.0, Blood Urea Nitrogen 4L, Creatinine 0.62, Sodium Level 141, Potassium Level 3.7, Chloride Level 107, Carbon Dioxide Level 27, Calcium Level 8.3L CBC/BMP Laboratory Tests 09/30/16 07:28 Red Blood Count 4.18, Mean Corpuscular Volume 83.6, Mean Corpuscular Hemoglobin 29.0, Mean Corpuscular Hemoglobin Concent 34.7, Red Cell Distribution Width 13.3 , Calcium Level 8.3 L Microbiology Microbiology 09/24/16 Urine Culture - Final, Complete LANNY BRADY MD September 30, 2016 13:53
[2016-09-30 14:00] VITALS: BP_SYST 100; BP_SYST 164; BP_DIAS 54; BP_DIAS 79
[2016-09-30 22:00] VITALS: BP 128/54
[2016-10-01 01:15] VITALS: BP 106/66
[2016-10-01] MEDS: LEVOTHYROXINE 0.088 MG TAB (88 MCG) PO SCH (06:00)
[2016-10-01] MEDS: SLF 3 ML SYR IV SCH ×2 (06:00→08:17)
[2016-10-01 08:00] VITALS: BP 104/56
[2016-10-01 08:09] LABS: MEAN CORPUSCULAR HEMOGLOBIN 29.9 pg (27.0-33.0); MEAN CORPUSCULAR HGB CONC 34.9 g/dl (32.0-36.5); MEAN CORPUSCULAR VOLUME 85.8 fl (80.0-96.0); RED CELL DISTRIBUTION WIDTH 13.6 % (11.5-14.5); WHITE BLOOD COUNT 6.6 K/mm3 (4.0-10.0)
[2016-10-01] MEDS: VANCOMYCIN ORAL SOL 250MG/5ML ORAL SYRINGE PO SCH (08:16)
[2016-10-01] MEDS: CitaloPRAM (CeleXA) 20 MG TAB PO SCH (08:17)
[2016-10-01] MEDS: HEPARIN SOD (PORCINE) 5000 UNITS/ML VIAL SQ SCH (08:17)
[2016-10-01] MEDS: LACTOBACILLUS ACIDOPHILUS CAP (BACID) PO SCH (08:17)
[2016-10-01 08:30] LABS: ANION GAP 7 MEQ/L (8-16); BLOOD UREA NITROGEN 8 MG/DL (7-18); CARBON DIOXIDE LEVEL 29 MEQ/L (21-32); CHLORIDE LEVEL 105 MEQ/L (98-107); CREATININE FOR GFR 0.72 MG/DL (0.55-1.02); GLOMERULAR FILTRATION RATE > 60.0 (>51); GLUCOSE, FASTING 100 MG/DL (70-105); POTASSIUM SERUM 3.8 MEQ/L (3.5-5.1); SODIUM LEVEL 141 MEQ/L (136-145)
--- NOTE | 2016-10-01 15:27 | DS.PDOC ---
Discharge Summary General Date of Admission Sep 25, 2016 at 03:00 Date of Discharge 10/01/16 Discharge Summary PROCEDURES PERFORMED DURING STAY: None. ADMITTING DIAGNOSES: 1. . C. difficile colitis 2. . Dyslipidemia 3. . Depression DISCHARGE DIAGNOSES: 1. . C. difficile colitis 2. . Dyslipidemia 3. . Depression COMPLICATIONS/CHIEF COMPLAINT: Colitis, Lower Gi Bleed. HISTORY OF PRESENT ILLNESS: . 56-year-old female with past medical history of hypothyroidism status post thyroidectomy, depression, and dyslipidemia presented to the ER with a chief complaint of abdominal pain with diarrhea. The patient was apparently seen in the [facility] urgent care clinic and was presumptively treated for C. difficile with metronidazole recently. However she returned to the ER here at [facility] for persistent nausea, vomiting, and diarrhea. The patient denied any sick contacts , recent foreign food ingestions, or any fevers, chills, chest pain, weight loss. The patient was admitted to the hospitalist service for further evaluation and management. During hospitalization a CT scan of the abdomen was performed and revealed diffuse bowel wall thickening involving the descending and sigmoid colon to the level of the rectum suggestive of possible infectious or inflammatory colitis. A GI panel was ordered here and was noted to be positive for C. difficile. The patient was subsequently treated with by mouth vancomycin. Over the last 5 days the patient's abdominal pain and diarrhea has resolved. She has been able to tolerate a by mouth diet and hasn't had any more episodes of nausea or vomiting. In addition, the patient's white blood cell count has normalized and she has remained afebrile. At this time, the patient states that she is feeling well and is eager to return home. I have discussed the importance of completing her trial of by mouth vancomycin therapy. I have advised the patient to follow- up with her primary care physician within one week and return to the ER if symptoms return or worsen. DISCHARGE MEDICATIONS: Please see below. ALLERGIES: Please see below. PHYSICAL EXAMINATION ON DISCHARGE: VITAL SIGNS: Please see below. General Exam: Positive: Alert, Cooperative, No Acute Distress ENT Exam: Positive: Atraumatic, Mucous membr. moist/pink Neck Exam: Negative: JVD Chest Exam: Positive: Clear to auscultation, Normal air movement Heart Exam: Positive: Rate Normal, Normal S1, Normal S2 Abdomen Exam: Positive: Soft, Negative: Tenderness Extremity Exam: Negative: Tenderness, Swelling Psych Exam: Positive: Oriented x 3 LABORATORY DATA: Please see below. IMAGING: CT of the abdomen and pelvis with contrast Clinical statement: Pain. Technique: Multiple axial CT images were obtained from the base of the lungs through the floor of the pelvis utilizing 5 mm axial slices after administration of nonionic intravenous contrast. Coronal and sagittal reconstructions were also obtained. No comparison is available. Findings: Chest: The visualized lung bases are clear. Abdomen: The liver, spleen, pancreas, kidneys, gallbladder, and adrenal glands are unremarkable. The aorta is within normal limits. There is no evidence of abdominal lymphadenopathy or ascites. Pelvis: There is diffuse bowel wall thickening involving the descending and sigmoid colon, to the level of the rectum. No focal evidence of bowel obstruction is seen. The urinary bladder is within normal limits. The patient is status post hysterectomy. The other pelvic structures appear grossly intact. There is no evidence of pelvic lymphadenopathy or ascites. Bones: There are no suspicious osseous abnormalities seen. Impression: Diffuse bowel wall thickening involving the descending and sigmoid colon, to the level of the rectum. Findings suggest an infectious or inflammatory colitis. Clinical correlation is recommended. PROGNOSIS: ACTIVITY: As tolerated. DIET: . As tolerated DISCHARGE PLAN: Home DISPOSITION: Home, Self-Care. DISCHARGE INSTRUCTIONS: 1. . Follow-up with primary care physician within one to 2 weeks 2. . Return to the ER if symptoms persist or worsen DISCHARGE CONDITION: Stable. TIME SPENT ON DISCHARGE: Greater than 30 minutes. Vital Signs/I&Os Vital Signs Date Time Temp Pulse Resp B/P (MAP) Pulse Ox O2 Delivery O2 Flow Rate FiO2 10/01/16 08:00 97.4 66 16 104/56 (72) 95 Room Air I&O- Last 24 Hours up to 6 AM 10/01/16 06:00 Intake Total 780 ml Output Total 1450 ml Balance -670 ml Laboratory Data Labs 24H Laboratory Tests 2 10/01/16 07:26: Anion Gap 7L, Glomerular Filtration Rate > 60.0, Blood Urea Nitrogen 8#, Creatinine 0.72, Sodium Level 141, Potassium Level 3.8, Chloride Level 105, Carbon Dioxide Level 29, Calcium Level 9.0 CBC/BMP Laboratory Tests 10/01/16 07:26 Red Blood Count 4.38, Mean Corpuscular Volume 85.8, Mean Corpuscular Hemoglobin 29.9, Mean Corpuscular Hemoglobin Concent 34.9, Red Cell Distribution Width 13.6 , Calcium Level 9.0 Microbiology Microbiology 09/24/16 Urine Culture - Final, Complete Discharge Medications Scheduled Vancomycin Hcl (Vancomycin HCl) 125 Mg Cap, 125 MG PO QID Scheduled PRN Ondansetron (Zofran Odt) 4 Mg Tab, 4 MG PO Q4H PRN for NAUSEA, (Reported) Allergies Coded Allergies: Shellfish Allergy (Verified Allergy, Severe, HIVES,BREATHING PROBLEMS, ) Tetracycline (Verified Allergy, Mild, RASH, 09/24/16) Codeine (Verified Adverse Reaction, Mild, VOMIT, 09/24/16) Meperidine (Verified Adverse Reaction, Mild, VOMIT, 09/24/16) Atorvastatin (Verified Adverse Reaction, Unknown, 09/24/16) LANNY BRADY MD October 01, 2016 15:27
== END 2016-10-01 12:20 | disposition home or self-care (01) | DRG 720 ==
LOC: M ED 21:40 → M ED INP 09-25 03:00 → M PCU 09-25 18:45 → M MSPAV 09-28 15:40 → M PED 10-01 00:49
PROVIDERS: ADMIT Internal Medicine; ATTEND Internal Medicine
DX: A41.9 Sepsis, unspecified organism (principal); A04.7 Enterocolitis due to Clostridium difficile; E78.5 Hyperlipidemia, unspecified; F32.9 Major depressive disorder, single episode, unspecified; E89.0 Postprocedural hypothyroidism; Z88.5 Allergy status to narcotic agent; Z91.013 Allergy to seafood; Z88.8 Allergy status to other drugs, medicaments and biological substances; E87.6 Hypokalemia; F41.9 Anxiety disorder, unspecified

== ENCOUNTER → 2016-09-24 | Outpatient (CLI) | payer BC ==
[~2016-09-24] MED LIST: METR500T10 PO; ZOFR4TAB3 PO
--- NOTE | 2016-09-24 17:21 | REP ---
ABDOMEN FLAT, UPRIGHT PA CHEST: HISTORY: Abdominal pain. COMPARISON: 07/20/2006. Air is present in the small and large intestine. There are no air fluid levels or dilated loops of intestine. There is no pneumoperitoneum. A moderate amount of stool is present in the colon. Surgical clips are present in the pelvis and left lateral abdomen. The lungs are clear. IMPRESSION: Nonspecific bowel gas pattern. Signed by Leobardo Pool MD 09/25/2016 08:23 A
== END ==
LOC: M LRY 16:07
PROVIDERS: ATTEND Nurse Practitioner Family
DX: R10.84 Generalized abdominal pain (principal); A09 Infectious gastroenteritis and colitis, unspecified

== ENCOUNTER → 2016-09-24 | Outpatient (REF) | payer BC ==
[2016-09-24 20:50] LABS: ALBUMIN 3.8 GM/DL (3.2-5.2); ALBUMIN/GLOBULIN RATIO 1.23 (1.00-1.93); ALKALINE PHOSPHATASE 103 U/L (45-117); ALT/SGPT 82 U/L (12-78); ANION GAP 5 MEQ/L (8-16); AST/SGOT 46 U/L (15-37); BILIRUBIN,TOTAL 0.3 MG/DL (0.2-1.0); BLOOD UREA NITROGEN 16 MG/DL (7-18); CALCIUM LEVEL 8.5 MG/DL (8.5-10.1); CARBON DIOXIDE LEVEL 30 MEQ/L (21-32); CHLORIDE LEVEL 108 MEQ/L (98-107); CREATININE FOR GFR 0.84 MG/DL (0.55-1.02); GLOMERULAR FILTRATION RATE > 60.0 (>51); GLUCOSE, FASTING 90 MG/DL (70-105); POTASSIUM SERUM 3.9 MEQ/L (3.5-5.1); SODIUM LEVEL 143 MEQ/L (136-145); TOTAL PROTEIN 6.9 GM/DL (6.4-8.2)
[2016-09-24 20:51] LABS: BASO # 0.1 K/mm3 (0.0-0.2); BASO % 0.6 % (0.0-1.0); EOS # 0.3 K/mm3 (0.0-0.50); EOS % 2.9 % (0.0-3.0); LARGE UNSTAINED CELL # 0.1 K/mm3 (0.0-0.4); LYMPH % 16.8 % (24.0-44.0); MEAN CORPUSCULAR HEMOGLOBIN 28.7 pg (27.0-33.0); MEAN CORPUSCULAR HGB CONC 33.6 g/dl (32.0-36.5); MEAN CORPUSCULAR VOLUME 85.5 fl (80.0-96.0); MONO # 0.8 K/mm3 (0.0-0.8); MONO % 6.5 % (0.0-5.0); NEUTROPHILS # 8.3 K/mm3 (1.8-7.7); NEUTROPHILS % 72.3 % (36.0-66.0); PLATELET COUNT, AUTOMATED 278 k/mm3 (150-450); RED CELL DISTRIBUTION WIDTH 12.7 % (11.5-14.5); WHITE BLOOD COUNT 11.5 K/mm3 (4.0-10.0)
== END ==
LOC: M SFHCLERA 15:48
PROVIDERS: ATTEND Nurse Practitioner Family
DX: A09 Infectious gastroenteritis and colitis, unspecified (principal)

== ENCOUNTER → 2016-12-17 | Outpatient (REF) | payer OTHER, SELFPAY ==
[~2016-12-17] MED LIST changes: +METR1TAB66 PO; -METR500T10 PO; +VANC125C2 PO
[2016-12-18 11:46] LABS: THYROXINE (T4) 10.6 UG/DL (4.5-12.0)
== END ==
LOC: M SFHCCLAY 16:02
PROVIDERS: ATTEND Family Medicine
DX: E03.9 Hypothyroidism, unspecified (principal)

== ENCOUNTER → 2017-06-27 | Outpatient (CLI) | payer BC | LOC: M CLY 08:19 | DX: M25.761 Osteophyte, right knee (principal); M25.762 Osteophyte, left knee; M25.562 Pain in left knee; M25.561 Pain in right knee | CPT/HCPCS: 73564 ==

== ENCOUNTER → 2017-06-27 | Outpatient (REF) | payer BC ==
[2017-06-27 12:14] LABS: TOTAL T3 92.2 NG/DL (60.0-181.0)
[2017-06-27 12:19] LABS: THYROXINE (T4) 11.2 UG/DL (4.5-12.0)
== END ==
LOC: M SFHCCLAY 08:04
DX: E03.9 Hypothyroidism, unspecified (principal)
CPT/HCPCS: 84443

== ENCOUNTER → 2017-09-22 | Outpatient (REF) | payer BC ==
[2017-09-22 16:27] LABS: BASO % 0.6 % (0.0-1.0); EOS # 0.4 10^3/uL (0.0-0.50); EOS % 5.6 % (0.0-3.0); HEMATOCRIT 40.6 % (36.0-47.0); HEMOGLOBIN 13.6 g/dl (12.0-15.5); IMMATURE GRANULOCYTE % 0.2 % (0-3.0); LYMPH # 2.2 10^3/uL (1.5-4.5); LYMPH % 33.8 % (24.0-44.0); MEAN CORPUSCULAR HEMOGLOBIN 28.8 pg (27.0-33.0); MEAN CORPUSCULAR HGB CONC 33.5 g/dl (32.0-36.5); MONO # 0.6 10^3/uL (0.0-0.8); MONO % 8.8 % (0.0-5.0); NEUTROPHILS # 3.3 10^3/uL (1.8-7.7); PLATELET COUNT, AUTOMATED 205 10^3/uL (150-450); RED BLOOD COUNT 4.72 10^6/uL (4.00-5.40); RED CELL DISTRIBUTION WIDTH 12.6 % (11.5-14.5); WHITE BLOOD COUNT 6.4 10^3/uL (4.0-10.0)
[2017-09-22 16:46] LABS: ALBUMIN 4.2 GM/DL (3.2-5.2); ALKALINE PHOSPHATASE 85 U/L (45-117); ALT/SGPT 53 U/L (12-78); AMYLASE 62 U/L (25-115); ANION GAP 5 MEQ/L (8-16); AST/SGOT 32 U/L (7-37); BILIRUBIN,TOTAL 0.4 MG/DL (0.2-1.0); BLOOD UREA NITROGEN 17 MG/DL (7-18); CARBON DIOXIDE LEVEL 31 MEQ/L (21-32); CHLORIDE LEVEL 108 MEQ/L (98-107); CHOLESTEROL LEVEL 294 MG/DL (<200); CHOLESTEROL RISK RATIO 6.125 (<5); CREATININE FOR GFR 0.87 MG/DL (0.55-1.30); GLOMERULAR FILTRATION RATE > 60.0 (>51); GLUCOSE, FASTING 86 MG/DL (70-100); HDL CHOLESTEROL 48 MG/DL (>40); LDL CHOLESTEROL 219.6 MG/DL (<100); LIPASE 161 U/L (73-393); NON-HDL-C 246 MG/DL; POTASSIUM SERUM 4.3 MEQ/L (3.5-5.1); SODIUM LEVEL 144 MEQ/L (136-145); TOTAL PROTEIN 7.7 GM/DL (6.4-8.2); TRIGLYCERIDES LEVEL 132 MG/DL (<150)
== END ==
LOC: M SFHCCLAY 08:51
DX: E03.9 Hypothyroidism, unspecified (principal); R10.84 Generalized abdominal pain; E78.5 Hyperlipidemia, unspecified; R19.7 Diarrhea, unspecified
CPT/HCPCS: 82150

== ENCOUNTER → 2017-12-08 | Outpatient (CLI) | payer BC | LOC: M SLEEP HO 14:14 | DX: G47.30 Sleep apnea, unspecified (principal) | CPT/HCPCS: G0399 ==

== ENCOUNTER → 2018-05-11 | Outpatient (REF) | payer SELFPAY, BC ==
[2018-05-12 11:53] LABS: FREE T4 1.11 NG/DL (0.76-1.46)
[2018-05-12 11:53] LABS: THYROID STIMULATING HORMONE 0.521 uIU/ML (0.358-3.740)
== END ==
LOC: M SFHCCLAY 15:38
DX: F41.9 Anxiety disorder, unspecified (principal); F32.9 Major depressive disorder, single episode, unspecified; E03.9 Hypothyroidism, unspecified
CPT/HCPCS: 84443

== ENCOUNTER → 2019-09-16 | Outpatient (REF) | payer BC ==
[~2019-09-16] MED LIST changes: +METR-265 PO; -METR1TAB66 PO; -VANC125C2 PO; +VANC125C3 PO; +ZOFR4TAB14 PO; -ZOFR4TAB3 PO
[2019-09-16 16:41] LABS: ALT/SGPT 128 U/L (12-78); BILIRUBIN,TOTAL 0.4 MG/DL (0.2-1.0); BLOOD UREA NITROGEN 21 MG/DL (7-18); CALCIUM LEVEL 9.5 MG/DL (8.5-10.1); CARBON DIOXIDE LEVEL 31 MEQ/L (21-32); CHLORIDE LEVEL 104 MEQ/L (98-107); CHOLESTEROL LEVEL 322 MG/DL (<200); CHOLESTEROL RISK RATIO 6.313 (<5); CREATININE FOR GFR 0.93 MG/DL (0.55-1.30); GLOMERULAR FILTRATION RATE > 60.0 (>51); GLUCOSE, FASTING 79 MG/DL (70-100); HDL CHOLESTEROL 51 MG/DL (>40); LDL CHOLESTEROL 220 MG/DL (<100); NON-HDL-C 271 MG/DL; POTASSIUM SERUM 4.2 MEQ/L (3.5-5.1); SODIUM LEVEL 138 MEQ/L (136-145); TOTAL PROTEIN 7.8 GM/DL (6.4-8.2); TRIGLYCERIDES LEVEL 253 MG/DL (<150)
== END ==
LOC: M SFHCCLAY 10:14
PROVIDERS: ATTEND Family Medicine
DX: E03.9 Hypothyroidism, unspecified (principal); E78.5 Hyperlipidemia, unspecified

== ENCOUNTER → 2019-09-30 | Outpatient (REF) | payer BC | LOC: M SFHCCLAY 16:18 | PROVIDERS: ATTEND Family Medicine | DX: L98.9 Disorder of the skin and subcutaneous tissue, unspecified (principal) ==

== ENCOUNTER → 2020-03-14 | Outpatient (REF) | payer BC ==
[2020-03-15 12:23] LABS: ALT/SGPT 77 U/L (12-78); BILIRUBIN,TOTAL 0.2 MG/DL (0.2-1.0); BLOOD UREA NITROGEN 18 MG/DL (7-18); CALCIUM LEVEL 8.7 MG/DL (8.5-10.1); CARBON DIOXIDE LEVEL 31 MEQ/L (21-32); CHLORIDE LEVEL 107 MEQ/L (98-107); CHOLESTEROL LEVEL 225 MG/DL (<200); CREATININE FOR GFR 0.94 MG/DL (0.55-1.30); GLOMERULAR FILTRATION RATE > 60.0 (>51); GLUCOSE, FASTING 91 MG/DL (70-100); HDL CHOLESTEROL 50 MG/DL (>40); LDL CHOLESTEROL 131 MG/DL (<100); NON-HDL-C 175 MG/DL; POTASSIUM SERUM 4.9 MEQ/L (3.5-5.1); SODIUM LEVEL 142 MEQ/L (136-145); TOTAL PROTEIN 7.2 GM/DL (6.4-8.2); TRIGLYCERIDES LEVEL 220 MG/DL (<150)
== END ==
LOC: M SFHCCLAY 15:07
PROVIDERS: ATTEND Family Medicine
DX: E78.5 Hyperlipidemia, unspecified (principal); E03.9 Hypothyroidism, unspecified

== ENCOUNTER → 2020-10-19 | Outpatient (REF) | payer BC | LOC: M SFHCCLAY 11:36 | PROVIDERS: ATTEND Family Medicine | DX: E03.9 Hypothyroidism, unspecified (principal) ==

== ENCOUNTER → 2021-06-06 | Outpatient (REF) | payer BC | LOC: M SFHCCLAY 17:04 | PROVIDERS: ATTEND Nurse Practitioner Family | DX: R05.9 Cough, unspecified (principal) ==

== ENCOUNTER → 2022-04-11 | Outpatient (REF) | payer BC ==
[2022-04-11 17:50] LABS: BASO % 0.5 % (0.0-1.0); EOS # 0.2 10^3/uL (0.0-0.5); EOS % 2.2 % (0.0-3.0); HEMATOCRIT 41.2 % (36.0-47.0); HEMOGLOBIN 13.8 g/dl (12.0-15.5); LYMPH # 2.1 10^3/uL (1.5-5.0); LYMPH % 25.7 % (24.0-44.0); MEAN CORPUSCULAR HEMOGLOBIN 29.8 pg (27.0-33.0); MEAN CORPUSCULAR HGB CONC 33.5 g/dl (32.0-36.5); MONO # 0.8 10^3/uL (0.0-0.8); MONO % 9.7 % (2.0-8.0); NEUTROPHILS % 61.7 % (36.0-66.0); PLATELET COUNT, AUTOMATED 261 10^3/uL (150-450); RED BLOOD COUNT 4.63 10^6/uL (4.00-5.40); WHITE BLOOD COUNT 8.1 10^3/uL (4.0-10.0)
[2022-04-11 18:32] LABS: ALBUMIN 4.3 GM/DL (3.2-5.2); ALT/SGPT 86 U/L (12-78); BILIRUBIN,TOTAL 0.4 MG/DL (0.2-1.0); BLOOD UREA NITROGEN 17 MG/DL (7-18); CALCIUM LEVEL 9.7 MG/DL (8.5-10.1); CARBON DIOXIDE LEVEL 30 MEQ/L (21-32); CHLORIDE LEVEL 103 MEQ/L (98-107); CHOLESTEROL LEVEL 241 MG/DL (<200); CHOLESTEROL RISK RATIO 4.634 (<5); CREATININE FOR GFR 0.88 MG/DL (0.55-1.30); FREE T4 1.19 NG/DL (0.76-1.46); GLOMERULAR FILTRATION RATE > 60.0 (>51); GLUCOSE, FASTING 80 MG/DL (70-100); HDL CHOLESTEROL 52 MG/DL (>40); LDL CHOLESTEROL 157 MG/DL (<100); MAGNESIUM LEVEL 2.4 MG/DL (1.8-2.4); NON-HDL-C 189 MG/DL; POTASSIUM SERUM 4.5 MEQ/L (3.5-5.1); SODIUM LEVEL 138 MEQ/L (136-145); THYROID STIMULATING HORMONE 0.616 uIU/ML (0.358-3.740); TOTAL PROTEIN 7.7 GM/DL (6.4-8.2); TRIGLYCERIDES LEVEL 161 MG/DL (<150)
[2022-04-11 19:07] LABS: TOTAL T3 112.1 NG/DL (60.0-181.0)
== END ==
LOC: M SFHCCLAY 10:39
PROVIDERS: ATTEND Family Medicine
DX: E78.5 Hyperlipidemia, unspecified (principal); K21.9 Gastro-esophageal reflux disease without esophagitis; E03.9 Hypothyroidism, unspecified

== ENCOUNTER → 2022-06-24 | Outpatient (CLI) | payer BC | LOC: M CLY 15:38 | PROVIDERS: ATTEND Family Medicine | DX: M54.50 Low back pain, unspecified (principal); M48.54XA Collapsed vertebra, not elsewhere classified, thoracic region, initial encounter for fracture; M47.816 Spondylosis without myelopathy or radiculopathy, lumbar region ==

== ENCOUNTER → 2022-06-24 | Outpatient (REF) | payer BC | LOC: M SFHCCLAY 15:22 | PROVIDERS: ATTEND Family Medicine | DX: K21.9 Gastro-esophageal reflux disease without esophagitis (principal); E03.9 Hypothyroidism, unspecified; Z53.9 Procedure and treatment not carried out, unspecified reason ==

== ENCOUNTER 2022-11-04 12:54 | Day surgery (SDC) | payer BC ==
[~2022-11-04] VITALS: Ht 174 cm; Wt 74.8 kg
[~2022-11-04 12:54] MED LIST changes: +ALPR0.25 PO; +DULO30CA9 PO; +EUTH88TA PO; +LOVA10TA PO; +OMEP40CA4 PO
[2022-11-04] MEDS ORDERED: propofoL 200 MG/20 ML VIAL As Ordered ONE (15:06)
[2022-11-04 15:40] VITALS: BP 128/65
== END 2022-11-04 16:17 | disposition home or self-care (01) ==
LOC: M OPP 12:54
PROVIDERS: ATTEND Internal Medicine Gastroenterology
DX: K29.70 Gastritis, unspecified, without bleeding (principal); K44.9 Diaphragmatic hernia without obstruction or gangrene; R10.13 Epigastric pain

== ENCOUNTER → 2023-01-02 | Outpatient (CLI) | payer BC | LOC: M RAD 08:30 | PROVIDERS: ATTEND Nurse Practitioner Family | DX: R14.0 Abdominal distension (gaseous) (principal); K30 Functional dyspepsia | CPT/HCPCS: 78264; A9541 ==

== ENCOUNTER 2023-02-17 07:25 | Day surgery (SDC) | payer BC ==
[~2023-02-17] VITALS: Ht 172.7 cm; Wt 72.6 kg
[~2023-02-17 07:25] MED LIST changes: +LIDOCAINE 2% 100MG/5ML SDV (FOR ANES.) As Ordered ONE; +NS 1,000 ML IV ONE; +propofoL 200 MG/20 ML VIAL As Ordered ONE
[2023-02-17 09:06] VITALS: TEMP 97.7
[2023-02-17 09:18] VITALS: BP 118/70; O2SAT 99
== END 2023-02-17 09:18 | disposition home or self-care (01) ==
LOC: M OPP 07:25
PROVIDERS: ATTEND Internal Medicine Gastroenterology
DX: Z12.11 Encounter for screening for malignant neoplasm of colon (principal); D12.6 Benign neoplasm of colon, unspecified; K57.30 Diverticulosis of large intestine without perforation or abscess without bleeding; K64.4 Residual hemorrhoidal skin tags; K64.8 Other hemorrhoids; Z79.02 Long term (current) use of antithrombotics/antiplatelets; Z79.890 Hormone replacement therapy; Z79.899 Other long term (current) drug therapy; Z88.1 Allergy status to other antibiotic agents; Z88.5 Allergy status to narcotic agent; Z88.8 Allergy status to other drugs, medicaments and biological substances; Z91.013 Allergy to seafood

== ENCOUNTER → 2023-04-15 | Outpatient (REF) | payer BC ==
[~2023-04-15] MED LIST changes: -LIDOCAINE 2% 100MG/5ML SDV (FOR ANES.) As Ordered ONE; -NS 1,000 ML IV ONE; -propofoL 200 MG/20 ML VIAL As Ordered ONE
[2023-04-15 17:41] LABS: ALBUMIN 4.1 G/DL (3.2-5.2); ALKALINE PHOSPHATASE 111 U/L (46-116); ALT/SGPT 98 U/L (7.0-40); AST/SGOT 50 U/L (<34); BILIRUBIN,TOTAL 0.3 MG/DL (0.3-1.2); BLOOD UREA NITROGEN 20 MG/DL (9-23); CALCIUM LEVEL 9.5 MG/DL (8.3-10.6); CARBON DIOXIDE LEVEL 31 MMOL/L (20-31); CHLORIDE LEVEL 105 MMOL/L (98-107); CHOLESTEROL LEVEL 258 MG/DL (<200); CHOLESTEROL RISK RATIO 5.05 (<5); GLOMERULAR FILTRATION RATE > 60.0 (>45); GLUCOSE, FASTING 81 MG/DL (74-106); LDL CHOLESTEROL 163.4 MG/DL (<100); MAGNESIUM LEVEL 2.1 MG/DL (1.8-2.4); POTASSIUM SERUM 4.6 MMOL/L (3.5-5.1); SODIUM LEVEL 143 MMOL/L (136-145); THYROID STIMULATING HORMONE 0.751 uIU/ML (0.55-4.78); TOTAL PROTEIN 7.3 G/DL (5.7-8.2); TRIGLYCERIDES LEVEL 218 MG/DL (<150)
[2023-04-15 17:42] LABS: FREE T4 1.22 NG/DL (0.89-1.76)
== END ==
LOC: M SFHCCLAY 11:14
PROVIDERS: ATTEND Family Medicine
DX: E78.5 Hyperlipidemia, unspecified (principal); K21.9 Gastro-esophageal reflux disease without esophagitis; E03.9 Hypothyroidism, unspecified

== ENCOUNTER → 2023-09-05 | Outpatient (REF) | payer BC | LOC: M SFHCCLAY 08:52 | PROVIDERS: ATTEND Family Medicine | DX: R05.1 Acute cough (principal); Z53.9 Procedure and treatment not carried out, unspecified reason ==

== ENCOUNTER → 2023-10-21 | Outpatient (CLI) | payer BC | LOC: M CLY 11:16 | PROVIDERS: ATTEND Family Medicine | DX: Z53.9 Procedure and treatment not carried out, unspecified reason (principal) ==

== ENCOUNTER → 2023-10-21 | Outpatient (CLI) | payer BC | LOC: M CLY 11:29 | PROVIDERS: ATTEND Family Medicine | DX: M25.562 Pain in left knee (principal) ==

== ENCOUNTER → 2024-01-08 | Outpatient (REF) | payer BC | LOC: M SFHCCLAY 08:47 | PROVIDERS: ATTEND Physician Assistant | DX: H10.9 Unspecified conjunctivitis (principal) ==

== ENCOUNTER → 2024-04-26 | Outpatient (REF) | payer BC ==
[2024-04-26 19:22] LABS: HEMATOCRIT 40.2 % (36.0-47.0); HEMOGLOBIN 13.4 g/dl (12.0-15.5); MEAN CORPUSCULAR HEMOGLOBIN 29.6 pg (27.0-33.0); MEAN CORPUSCULAR HGB CONC 33.3 g/dl (32.0-36.5); MEAN CORPUSCULAR VOLUME 88.7 fl (80.0-96.0); PLATELET COUNT, AUTOMATED 210 10^3/uL (150-450); RED BLOOD COUNT 4.53 10^6/uL (4.00-5.40); WHITE BLOOD COUNT 7.6 10^3/uL (4.0-10.0)
[2024-04-26 19:27] LABS: ALBUMIN 4.1 G/DL (3.2-5.2); ALKALINE PHOSPHATASE 105 U/L (35-104); ALT/SGPT 69 U/L (7.0-40); AST/SGOT 36 U/L (<34); BILIRUBIN,TOTAL 0.3 MG/DL (0.3-1.2); BLOOD UREA NITROGEN 24 MG/DL (9-23); CALCIUM LEVEL 9.8 MG/DL (8.3-10.6); CARBON DIOXIDE LEVEL 31 MMOL/L (20-31); CHLORIDE LEVEL 106 MMOL/L (98-107); CHOLESTEROL LEVEL 235 MG/DL (<200); CREATININE FOR GFR 0.78 MG/DL (0.55-1.30); GLOMERULAR FILTRATION RATE > 60.0 (>45); GLUCOSE, FASTING 75 MG/DL (74-106); LDL CHOLESTEROL 152.6 MG/DL (<100); MAGNESIUM LEVEL 2.1 MG/DL (1.8-2.4); POTASSIUM SERUM 4.3 MMOL/L (3.5-5.1); SODIUM LEVEL 142 MMOL/L (136-145); TOTAL PROTEIN 7.4 G/DL (5.7-8.2); TRIGLYCERIDES LEVEL 177 MG/DL (<150)
[2024-04-26 19:28] LABS: THYROID STIMULATING HORMONE 1.143 uIU/ML (0.55-4.78)
== END ==
LOC: M SFHCCLAY 10:39
PROVIDERS: ATTEND Family Medicine
DX: E78.5 Hyperlipidemia, unspecified (principal); E03.9 Hypothyroidism, unspecified; K21.9 Gastro-esophageal reflux disease without esophagitis